=== PATIENT | female | born 1965 | race Caucasian/White ===

== ENCOUNTER 2022-02-22 22:35 | Emergency (ER) | payer OTHER ==
[2022-02-22 22:48] VITALS: TEMP 98.2
--- NOTE | 2022-02-23 01:27 | XR ---
EXAMINATION TYPE: XR chest 1V portable DATE OF EXAM: 02/23/2022 COMPARISON: NONE HISTORY: Bilateral leg edema TECHNIQUE: Single view FINDINGS: Heart and mediastinum are normal. Lungs are clear. Diaphragm is normal. Bony thorax is inta ct. The pulmonary vascularity is normal. IMPRESSION: Normal chest.
[2022-02-23] MEDS ORDERED: MAGNESIUM SULFATE-D5W PMX 1 GM in DEXTROSE/WATER 1 100ML.BAG IVPB ONE (01:42)
--- NOTE | 2022-02-23 01:48 | ED ---
Extremity Problem HPI - General Chief complaint: Extremity Problem,Nontraumatic Stated complaint: Leg swelling Time Seen by Provider: 02/23/22 00:58 Source: patient, RN notes reviewed Mode of arrival: ambulatory Limitations: no limitations - History of Present Illness Initial comments: This is a pleasant 57-year-old female who presents from [facility] where she is rehabilitating from several controlled substances, she states mainly fentanyl. Patient states she was recently admitted to [facility] or back pain. At that time it sounds like she got an MRI. Patient has had some stool incontinence due to diarrhea. However she denies any saddle anesthesia. No urinary incontinence or urinary retention. Patient states she's been taking Imodium for the diarrhea. No fever. Patient's main complaint today is bilateral lower extremity edema. Patient denying any shortness of breath or chest pain. No fever or chills. Patient does have some residual pain in the back but no radicular symptoms. Patient states she is able to actively without difficulty. Patient states she had an MRI at [facility] and actually saw a neurosurgeon. Sounds like the patient does have some degenerative disc disease. No headache, no fever or chills, no changes in vision or hearing, no sore throat or difficulty with speech, no neck pain, no chest pain or shortness of breath, no abdominal pain, no nausea or vomiting, no changes in urination, no numbness or tingling, no extremity pain, no skin rashes or lesions. Past medical, surgical, social, and family history reviewed. Patient is a cigarette smoker. MD Complaint: extremity swelling - Related Data Allergies Allergy/AdvReac Type Severity Reaction Status Date / Time No Known Allergies Allergy Verified 02/22/22 22:48 Review of Systems ROS Statement: Those systems with pertinent positive or pertinent negative responses have been documented in the HPI. ROS Other: All systems not noted in ROS Statement are negative. Past Medical History Past Medical History: No Reported History History of Any Multi-Drug Resistant Organisms: None Reported Past Surgical History: No Surgical Hx Reported Past Psychological History: Bipolar Smoking Status: Never smoker Past Alcohol Use History: Daily, Heavy Past Drug Use History: Cocaine, Heroin, IV Drug Use, Marijuana, Methamphetamine, Opiates General Exam Limitations: no limitations General appearance: alert, in no apparent distress Head exam: Present: atraumatic, normocephalic, normal inspection Eye exam: Present: normal appearance, PERRL, EOMI. Absent: scleral icterus, conjunctival injection, periorbital swelling ENT exam: Present: normal exam, mucous membranes moist, normal external ear exam. Absent: mucous membranes dry Neck exam: Present: normal inspection, full ROM. Absent: tenderness, meningismus, lymphadenopathy Respiratory exam: Present: normal lung sounds bilaterally. Absent: respiratory distress, wheezes, rales, rhonchi, stridor Cardiovascular Exam: Present: regular rate, normal rhythm, normal heart sounds. Absent: systolic murmur, diastolic murmur, rubs, gallop, clicks GI/Abdominal exam: Present: soft, normal bowel sounds. Absent: distended, tenderness, guarding, rebound, rigid Extremities exam: Present: normal inspection, full ROM, normal capillary refill, pedal edema (Patient has edema noted to the mid tibial area bilaterally. Some mild calf tenderness.), other (No evidence of erythema or infectious process.). Absent: tenderness, joint swelling, calf tenderness Back exam: Present: normal inspection Neurological exam: Present: alert, oriented X3, CN II-XII intact Psychiatric exam: Present: normal affect, normal mood Skin exam: Present: warm, dry, intact, normal color. Absent: rash Course Vital Signs 02/22/22 02/23/22 22:45 02:47 Temperature 98.2 F Pulse Rate 82 62 Respiratory 18 19 Rate Blood Pressure 103/54 116/69 O2 Sat by Pulse 96 98 Oximetry - Reevaluation(s) Reevaluation #1: 02/23/22 03:15 Medical record is reviewed Patient essentially asymptomatic, no distress. Patient is informed of results and questions answered Patient in no distress Medical Decision Making - Medical Decision Making Was pt. sent in by a medical professional or institution? @ -[[facility]] Did you speak to anyone other than the patient for history? @ -[no] Did you review nursing and triage notes? @ -agree Were old charts reviewed? @ -no, attempts made to obtain outside records from [facility] Differential Diagnosis? @ -Differential diagnosis peripheral edema, hypoalbuminemia, dependent edema, bilateral DVT, congestive heart failure, bilateral lower extremities infectious process, this is not an exhaustive list. EKG interpreted by me (3pts min.)? @ -yes X-rays interpreted by me (1pt min.)? @ -yes CT interpreted by me (1pt min.)? @ -[none] U/S interpreted by me (1pt. min.)? @ -yes What testing was considered but not performed? (CT, X-rays, U/S, labs)? Why? @ na What meds were considered but not given? Why? @ -I did consider Lasix. However the patient was in no respiratory distress. I believe this is likely dependent edema. Patient did had a minimally low with blood cell count Bernini in this thought of possible viral infection. However the patient had no respiratory complaints. No fever. Vital testing to include COVID-19, RSV, and influenza was considered but was deferred due to the patient's well appearance. Did you discuss the management of the patient with other professionals? @ -Attending physician Did you reconcile home meds? @ -Reviewed but not reconciled Was smoking cessation discussed for >3mins.? @ -I discussed smoking cessation for greater than 3 minutes. The risk of smoking were discussed with the patient including but not limited to risks of cancer, stroke, coronary artery disease and COPD. Also discussed with patient were multiple methods of quitting smoking. Lastly we discussed the financial cost of smoking. Was critical care preformed (if so, how long)? @ -[none] Were there social determinants of health that impacted care today? How? (Homelessness, low income, unemployed, alcoholism, drug addiction, transportation, low edu. Level, literacy, decrease access to med. care, prison, rehab)? @ -Patient is currently at a rehabilitation facility, [facility]. This certainly could hamper the patient's ability to follow-up in a timely manner. Was there de-escalation of care discussed even if they declined? (Discuss DNR or withdrawal of care, Hospice)? @ -[Discuss DNR or withdrawal of care, Hospice?] What co-morbidities impacted this encounter? (DM, HTN, Smoking, COPD, CAD, Cancer, CVA, Hep., AIDS, mental health diagnosis, sleep apnea, morbid obesity)? @ -Previous drug abuse. Previous back pain. Patient had a recent admission for back pain and ended up having an MRI and has seen a neurosurgeon. Patient has a follow-up appointment. Was patient admitted / discharged? @ -Patient remained hemodynamically stable and in no significant distress here in the ER. Patient did show long QT syndrome on EKG but no evidence of significant ischemic changes. Patient received one dose of magnesium here. Venous Doppler was negative. Patient did have mild anemia but has had no bleedi ng. Due to the patient's diarrhea and recent hospital stay I did add on stool studies to include stool for occult blood, C. diff toxin, stool culture. All findings discussed with the patient. We'll treat conservatively with elevation, compression hose, follow-up. Patient concurs with this treatment plan. Patient's magnesium came back at 2.5. We'll hold the remainder of the infusion. Troponin negative. TSH was normal. Chem dioxide 35. I did review the patient's hemoglobin of 10.4 and hematocrit 30.1 with the patient. Patient states she has had anemia previously. Patient's white blood cell count of 3300 could indicate viral gastroenteritis as the patient has had some diarrhea. We d id send a stool study for culture, C. diff toxin, and occult blood which is pending at this point. I do believe the patient is stable for discharge. Patient concurs with this. Undiagnosed new problem with uncertain prognosis? @ -[none] Drug Therapy requiring intensive monitoring for toxicity (Heparin, Nitro, Insulin, Cardizem)? @ -[none] Were any procedures done? @ -[none] Diagnosis/symptom? @ -Dependent edema, anemia, Acute, or Chronic, or Acute on Chronic? @ -Acute/likely chronic Uncomplicated (without systemic symptoms) or Complicated (systemic symptoms)? @ -Uncomplicated Side effects of treatment? @ -[none] Exacerbation, Progression, or Severe Exacerbation] @ -[no] Poses a threat to life or bodily function? @ -Unlikely Patient was told to return to the ER for any signs or symptoms worsen. Told to return immediately if any other problems arise. All questions answered. Treatment plan discussed. Patient in agreement Every effort has been made to ensure accuracy of this dictation. However, due to the limitations of electronic medical records and dictation devices, errors in charting still occur. The case was discussed in detail with ED attending physician. Presentation, findings, treatment plan discussed in detail. [employer]. Fields - Lab Data Result diagrams: 02/23/22 01:21 02/23/22 01:21 Lab Results 02/23/22 02/23/22 02/23/22 Range/Units 01:21 01:21 01:21 WBC 3.3 L (3.8-10.6) k/uL RBC 3.46 L (3.80-5.40) m/uL Hgb 10.4 L (11.4-16.0) gm/dL Hct 30.1 L (34.0-46.0) % MCV 87.0 (80.0-100.0) fL MCH 30.0 (25.0-35.0) pg MCHC 34.5 (31.0-37.0) g/dL RDW 13.0 (11.5-15.5) % Plt Count 206 (150-450) k/uL MPV 7.9 Neutrophils % 44 % Lymphocytes % 42 % Monocytes % 7 % Eosinophils % 3 % Basophils % 0 % Neutrophils # 1.5 (1.3-7.7) k/uL Lymphocytes # 1.4 (1.0-4.8) k/uL Monocytes # 0.2 (0-1.0) k/uL Eosinophils # 0.1 (0-0.7) k/uL Basophils # 0.0 (0-0.2) k/uL PT 9.4 (9.0-12.0) sec INR 0.9 (<1.2) APTT 22.0 (22.0-30.0) sec Sodium 139 (137-145) mmol/L Potassium 4.3 (3.5-5.1) mmol/L Chloride 100 (98-107) mmol/L Carbon Dioxide 35 H (22-30) mmol/L Anion Gap 4 mmol/L BUN 15 (7-17) mg/dL Creatinine 0.72 (0.52-1.04) mg/dL Est GFR (CKD-EPI)AfAm >90 (>60 ml/min/1.73 sqM) Est GFR (CKD-EPI)NonAf >90 (>60 ml/min/1.73 sqM) Glucose 98 (74-99) mg/dL Plasma Lactic Acid Angel (0.7-2.0) mmol/L Calcium 9.2 (8.4-10.2) mg/dL Magnesium 2.5 H (1.6-2.3) mg/dL Total Bilirubin 0.2 (0.2-1.3) mg/dL AST 29 (14-36) U/L ALT 22 (4-34) U/L Alkaline Phosphatase 96 (38-126) U/L Troponin I (0.000-0.034) ng/mL NT-Pro-B Natriuret Pep pg/mL Total Protein 6.8 (6.3-8.2) g/dL Albumin 4.1 (3.5-5.0) g/dL TSH 1.550 (0.465-4.680) mIU/L Stool Occult Blood (Negative) 02/23/22 02/23/22 02/23/22 Range/Units 01:21 01:21 01:21 WBC (3.8-10.6) k/uL RBC (3.80-5.40) m/uL Hgb (11.4-16.0) gm/dL Hct (34.0-46.0) % MCV (80.0-100.0) fL MCH (25.0-35.0) pg MCHC (31.0-37.0) g/dL RDW (11.5-15.5) % Plt Count (150-450) k/uL MPV Neutrophils % % Lymphocytes % % Monocytes % % Eosinophils % % Basophils % % Neutrophils # (1.3-7.7) k/uL Lymphocytes # (1.0-4.8) k/uL Monocytes # (0-1.0) k/uL Eosinophils # (0-0.7) k/uL Basophils # (0-0.2) k/uL PT (9.0-12.0) sec INR (<1.2) APTT (22.0-30.0) sec Sodium (137-145) mmol/L Potassium (3.5-5.1) mmol/L Chloride (98-107) mmol/L Carbon Dioxide (22-30) mmol/L Anion Gap mmol/L BUN (7-17) mg/dL Creatinine (0.52-1.04) mg/dL Est GFR (CKD-EPI)AfAm (>60 ml/min/1.73 sqM) Est GFR (CKD-EPI)NonAf (>60 ml/min/1.73 sqM) Glucose (74-99) mg/dL Plasma Lactic Acid Angel 1.2 (0.7-2.0) mmol/L Calcium (8.4-10.2) mg/dL Magnesium (1.6-2.3) mg/dL Total Bilirubin (0.2-1.3) mg/dL AST (14-36) U/L ALT (4-34) U/L Alkaline Phosphatase (38-126) U/L Troponin I <0.012 (0.000-0.034) ng/mL NT-Pro-B Natriuret Pep 120 pg/mL Total Protein (6.3-8.2) g/dL Albumin (3.5-5.0) g/dL TSH (0.465-4.680) mIU/L Stool Occult Blood (Negative) 02/23/22 Range/Units 03:10 WBC (3.8-10.6) k/uL RBC (3.80-5.40) m/uL Hgb (11.4-16.0) gm/dL Hct (34.0-46.0) % MCV (80.0-100.0) fL MCH (25.0-35.0) pg MCHC (31.0-37.0) g/dL RDW (11.5-15.5) % Plt Count (150-450) k/uL MPV Neutrophils % % Lymphocytes % % Monocytes % % Eosinophils % % Basophils % % Neutrophils # (1.3-7.7) k/uL Lymphocytes # (1.0-4.8) k/uL Monocytes # (0-1.0) k/uL Eosinophils # (0-0.7) k/uL Basophils # (0-0.2) k/uL PT (9.0-12.0) sec INR (<1.2) APTT (22.0-30.0) sec Sodium (137-145) mmol/L Potassium (3.5-5.1) mmol/L Chloride (98-107) mmol/L Carbon Dioxide (22-30) mmol/L Anion Gap mmol/L BUN (7-17) mg/dL Creatinine (0.52-1.04) mg/dL Est GFR (CKD-EPI)AfAm (>60 ml/min/1.73 sqM) Est GFR (CKD-EPI)NonAf (>60 ml/min/1.73 sqM) Glucose (74-99) mg/dL Plasma Lactic Acid Angel (0.7-2.0) mmol/L Calcium (8.4-10.2) mg/dL Magnesium (1.6-2.3) mg/dL Total Bilirubin (0.2-1.3) mg/dL AST (14-36) U/L ALT (4-34) U/L Alkaline Phosphatase (38-126) U/L Troponin I (0.000-0.034) ng/mL NT-Pro-B Natriuret Pep pg/mL Total Protein (6.3-8.2) g/dL Albumin (3.5-5.0) g/dL TSH (0.465-4.680) mIU/L Stool Occult Blood Negative (Negative) - EKG Data -: EKG Interpreted by Me EKG Comments: EKG done at 1:25 AM and independently interpreted by me reveals normal sinus rhythm with possible left atrial enlargement, left ventricular hypertrophy, T- wave flattening noted in the lateral precordial leads. T-wave inversion in lead 3 and T-wave flattening in aVF. No evidence of ST elevation or depression. No comparison study Prolonged QT at 489 ms. Remainder of the intervals are normal. External 1 - Radiology Data Radiology results: report reviewed, image reviewed Independent interpretation of the bilateral venous Doppler of the lower extremities by me reveals no evidence of DVT or other abnormality. Chest x-ray interpreted by me reveals no acute findings. I did review the radiology study. Disposition Clinical Impression: Acute diarrhea, Dependent edema Narrative: History of polysubstance abuse Disposition: HOME SELF-CARE Condition: Good Instructions (If sedation given, give patient instructions): Acute Diarrhea (ED), Leg Edema (ED) Additional Instructions: Follow-up with your regular physician as directed. Return to the ER immediately if any symptoms worsen, new symptoms arise, or any other problems develop. Make sure you follow-up with your regular physician as well as the neurosurgeon that he is seen previously. Stool studies to include Clostridium difficile toxin are pending. Have somebody from [facility] call back for the results. Is patient prescribed a controlled substance at d/c from ED?: No Referrals: None,Stated [Primary Care Provider] - 1-2 days Time of Disposition: 03:16
[2022-02-23 01:56] LABS: Basophils % (A) 0 %; Eosinophils # (A) 0.1 k/uL (0-0.7); Eosinophils % (A) 3 %; HCT 30.1 % (34.0-46.0); HGB 10.4 gm/dL (11.4-16.0); Lymphocytes # (A) 1.4 k/uL (1.0-4.8); Lymphocytes % (A) 42 %; MCHC 34.5 g/dL (31.0-37.0); Mean Platelet Volume 7.9; Monocytes # (A) 0.2 k/uL (0-1.0); Monocytes % (A) 7 %; Neutrophils # (A) 1.5 k/uL (1.3-7.7); Neutrophils % (A) 44 %; Platelet Count 206 k/uL (150-450); RBC 3.46 m/uL (3.80-5.40); WBC 3.3 k/uL (3.8-10.6)
[2022-02-23 02:08] LABS: INR 0.9 (<1.2); Prothrombin Time 9.4 sec (9.0-12.0)
--- NOTE | 2022-02-23 02:11 | US ---
EXAMINATION TYPE: US venous doppler duplex LE DATE OF EXAM: 02/23/2022 1:59 AM COMPARISON: NONE CLINICAL HISTORY: Bilateral lower extremity edema and pain. Pain and swelling in the legs x 1 week. N o hx of DVT per patient. Patient states she does not take blood thinners. SIDE PERFORMED: Bilateral TECHNIQUE: The lower extremity deep venous system is examined utilizing real time linear array sonog daisy with graded compression, doppler sonography and color-flow sonography. VESSELS IMAGED: Common Femoral Vein Deep Femoral Vein Greater Saphenous Vein * Femoral Vein Popliteal Vein Small Saphenous Vein * Proximal Calf Veins (* superficial vessels) Right Leg: No evidence of DVT. Left Leg: No evidence of DVT. IMPRESSION: No evidence of deep vein thrombosis in both legs.
[2022-02-23 02:14] LABS: Potassium 4.3 mmol/L (3.5-5.1)
[2022-02-23 02:15] LABS: ALT 22 U/L (4-34); AST 29 U/L (14-36); African American GFR (CKD) >90 (>60 ml/min/1.73 sqM); Albumin 4.1 g/dL (3.5-5.0); Alkaline Phosphatase 96 U/L (38-126); Anion Gap 4 mmol/L; Blood Urea Nitrogen 15 mg/dL (7-17); Calcium 9.2 mg/dL (8.4-10.2); Carbon Dioxide 35 mmol/L (22-30); Chloride 100 mmol/L (98-107); Glucose 98 mg/dL (74-99); Magnesium 2.5 mg/dL (1.6-2.3); Non-African American GFR(CKD) >90 (>60 ml/min/1.73 sqM); Sodium 139 mmol/L (137-145); Total Bilirubin 0.2 mg/dL (0.2-1.3); Total Protein 6.8 g/dL (6.3-8.2)
[2022-02-23 02:48] VITALS: BP 116/69; PULSE 62; RESP 19
[2022-02-23] MEDS ORDERED: HYDROCORTISONE 1% OINT 28.35 GM TUBE TOPICAL PRN (03:40)
== END 2022-02-23 04:10 | disposition home or self-care (01) ==
LOC: EC 22:35
DX: R19.7 Diarrhea, unspecified (principal); R22.43 Localized swelling, mass and lump, lower limb, bilateral; F31.9 Bipolar disorder, unspecified; F12.90 Cannabis use, unspecified, uncomplicated
CPT/HCPCS: 36415; 93005; 83880; 80053; 83605; 83735; 84443; 84484; 85025; 85610; 85730; 82272; 87324; 87045; 83630; 87046; 71045; 93970; 99284; 96365; J3475

== ENCOUNTER → 2022-02-22 | Outpatient (CLI) | payer SELFPAY ==
[2022-02-23 01:22] LABS: ALT 21 U/L (8-44); AST 27 U/L (13-35); African American GFR (CKD) 100.6 (60.0-200.0); Alkaline Phosphatase 90 U/L (41-126); BUN/Creat Ratio 13.23 Ratio (12.00-20.00); Blood Urea Nitrogen 10.2 mg/dL (9.0-27.0); Calcium 9.1 mg/dL (8.7-10.3); Carbon Dioxide 28.8 mmol/L (20.0-27.5); Chloride 102 mmol/L (96-109); Globulin 2.4 g/dL (1.6-3.3); Glucose 99 mg/dL (70-110); Non-African American GFR(CKD) 86.8 (60.0-200.0); Potassium 4.3 mmol/L (3.5-5.5); Sodium 140 mmol/L (135-145); Total Bilirubin <0.15 mg/dL (0.30-1.20); Total Protein 6.4 g/dL (6.2-8.2)
== END | disposition home or self-care (01) ==
LOC: LABWHC1 15:06
PROVIDERS: ATTEND Family Medicine
DX: F11.20 Opioid dependence, uncomplicated (principal)
CPT/HCPCS: 36415; 80053; 84443